=== PATIENT | female | born 1940 | race Caucasian/White ===

== ENCOUNTER → 2017-01-10 | Outpatient (CLI) | payer MEDICARE ==
[~2017-01-10] MED LIST: ALBUTEROL17 GM INH; AMANTADINE HCL100 MG PO; AMIODARONE PO; AMOXICILLIN; AMOXICILLIN875 MG PO; ASPIRIN PO; ASPIRIN81 M1 PO; AVANDIA PO; BACTRIM DS TABL1 TA1 PO; BENAZEPRIL HCL5 MG PO; CARDIZEM CD PO; CARDIZEM SR PO; CELEXA PO; CITALOPRAM HBR40 MG PO; COREG PO; COUMADIN PO; COUMADIN2.5 MG PO; DYRENIUM100 MG PO; FERRO-TIME325 MG; FERRO-TIME325 MG PO; FERROUS SULFATE PO; GLUMETZA PO; HRT PO; INDERAL40 MG PO; KCL PO; KDUR; KLOR-CON PO; LANOXIN PO; LASIX PO; LEVOTHYROXINE25 MCG PO; LISINOPRIL PO; LOPRESSOR PO; LOVENOX; MAG-OX 400400 MG; MAG-OXIDE400 MG PO; METOLAZONE2.5 MG PO; METOPROLOL SUCC50 MG PO; MULTI-VITAMIN1 TAB PO; PERCOCET; PREDNISONE; PREVACID PO; PRILOSEC PO; PRIMIDONE250 MG PO; PROTONIX PO; SIMVASTATIN40 MG; SINEMET PO; SINEMET-25/1001 TAB PO; SYNTHROID PO; TESSALON PERLE100 M1 PO; TRIAMTERENE-HC1 EACH; ZESTORETIC 20/11 TAB PO; ZESTORETIC PO; ZOCOR PO
--- NOTE | ~2017-01-10 | US85 ---
[facility] A Service of [facility] RADIOLOGY TEXT RESULTS PATIENT: WING LIEBERMAN LOCATION: SNIV : 40 UNIT #: [id number] AGE: [address]: BEENA LOZA MD SEX: F ORDER DR: [id number] [address] [address] [id number] O MR#: [id number] Acc #: [id number] NAME: WING LIEBERMAN : 1940 SEX: F STUDY DATE/TIME: 01/10/2017 15:52 UNIT: SNIV ROOM: STUDY DESCRIPTION: LE Veins Unilat or Ltd Stdy Ordering Physician: Sajan Loza M.D. MEDICAL IMAGING REPORT This report is preliminary unless electronic signature is present. EXAM Right lower extremity venous duplex HISTORY Right lower extremity swelling and pain x4-5 days. FINDINGS There is phasic spontaneous flow with respiration seen at the right common femoral, deep femoral, femoral, popliteal veins. The anterior tibial vein is unable to be visualized. The right posterior tibial vein has flow with augmentation. The right peroneal vein is unable to be visualized. The right saphenous vein has flow present with augmentation. There is compressibility of the vein lumen of the right common femoral, deep femoral, femoral, and popliteal veins. Again, the anterior tibial and posterior tibial veins could not be visualized for compression, nor could the peroneal vein. The saphenous vein has compressibility of the vein lumen. IMPRESSION 1. There is no evidence of a DVT of the right lower extremity on today's exam. Significant edema was noted in the calf, making difficult to visualize all of the tibial veins. Dictated by... Steven Carranza M.D. THIS IS AN ELECTRONICALLY VERIFIED REPORT Steven Carranza M.D. at 01/11/2017 9:07 AM AC/pcl [facility] A Service of [facility] RADIOLOGY TEXT RESULTS PATIENT: WING LIEBERMAN LOCATION: SNIV : 40 UNIT #: [id number] AGE: [address]: BEENA LOZA MD SEX: F ORDER DR: TD: 01/10/2017 19:00 JOB #: [id number] MEDICAL IMAGING REPORT Page 1 of 1
== END | disposition home or self-care (01) ==
LOC: SNIV 15:30
DX: S80.11XA Contusion of right lower leg, initial encounter (principal); R60.0 Localized edema
CPT/HCPCS: 93971

== ENCOUNTER → 2017-02-08 | Day surgery (SDC) | payer MEDICARE ==
--- NOTE | ~2017-02-08 | OR ---
Unit #: [id number] #: [id number] Patient: WING LIEBERMAN [id number] [address] [address] [id number] O MR#: [id number] NAME: WING LIEBERMAN. ROOM: Date of Procedure: 02/08/2017 Admission Date: 02/08/2017 Surgeon: Mendez Augustine M.D. : 1940 Attending Physician: Mendez Augustine M.D. Primary Care Physician: iLn Loza OPERATIVE REPORT JOB NOTE: CC: DR. SAJAN LOZA. PRIMARY CARE PHYSICIAN Dr. Sajan Loza. PREOPERATIVE DIAGNOSES Dyspepsia and dysphagia. PROCEDURES PERFORMED Upper gastrointestinal endoscopy and biopsy as well as dilation of the distal esophagus with a 60-Polish Gonzalez dilator. POSTOPERATIVE DIAGNOSES 1. The patient had a single gastric ulcer in the prepyloric antral area. This was about 8 mm in size with grayish-white ulcer base. 2. There was severe prepyloric antral erosive gastritis. 3. Rest of the examination up to third part of duodenum was normal. A biopsy was obtained from the antrum for CLOtest. In addition, distal esophagus was dilated using a 60-Polish Gonzalez dilator; however, there was no obstructing stricture or mucosal ring. Relook endoscopy did not show any bleeding in the distal esophagus indicating that the dilation was in fact not needed in the first place. RECOMMENDATIONS The patient is being started on Protonix 40 mg p.o. daily. She will be followed up in the office in 8 to 10 weeks' time. SEDATION USED MAC. DESCRIPTION OF PROCEDURE Following detailed explanation of potential risks and complications of an upper endoscopy, namely perforation, bleeding, and complication related to sedation, the patient was brought to GI lab and laid in the left lateral decubitus position. Lubricated tip of the Olympus video upper endoscope was passed through the bite block into the proximal esophagus under direct vision. The entire esophageal mucosa was examined and appeared normal. Z-line was nicely demarcated, there being no esophagitis or hiatus hernia. The scope was then advanced into the gastric cavity and the latter was insufflated. Mucosa of the fundus, body, and antrum was examined. The patient was noted to have severe prepyloric antral erosive gastritis. In addition, a single gastric ulcer was seen in the anterior aspect of the Unit #: [id number] #: [id number] Patient: WING LIEBERMAN antrum which was about 8 mm with grayish-white ulcer base. Pylorus was intubated with visualization of the normal duodenal bulb and second and third part of the duodenum. Upon withdrawal and retroflexion; incisura, cardia, and greater curve was examined and no additional findings were noted. A biopsy was obtained from the antrum for CLOtest. The scope was then withdrawn in the distal esophagus. An 18 to 20 mm TTS balloon was passed through the accessory channel of the scope and dilation of the distal esophagus was done empirically. Relook endoscopy did not show any obvious bleeding. It did not show any mucosal injury of bleeding indicating that the dilation was probably unnecessary in the first place. The scope was then withdrawn all the way up to pharynx. No additional findings were noted. The patient tolerated the procedure without any postprocedure complications. Dictated by... Sheldon Terry/tracee TD: 02/08/2017 11:58 JOB #: [id number] OPERATIVE REPORT Page 1 of 1 X Mendez Augustine MD X PROCEDURE OPERATIVE NOTE
--- NOTE | ~2017-02-08 | OR ---
Unit #: [id number] #: [id number] Patient: WING LIEBERMAN [id number] [address] [address] [id number] O MR#: [id number] NAME: WING LIEBERMAN ROOM: Date of Procedure: 02/08/2017 Admission Date: 02/08/2017 Surgeon: Mendez Augustine M.D. : 1940 Attending Physician: Mendez Augustine M.D. Primary Care Physician: Lin Delacruz OPERATIVE REPORT ADDENDUM Postoperative instructions; the patient is advised to increase the dose of omeprazole to 40 mg p.o. b.i.d. from 40 mg q.a.m. Dictated by... Sheldon Terry/tracee TD: 02/08/2017 11:17 JOB #: [id number] OPERATIVE REPORT Page 1 of 1 X Mendez Augustine MD X PROCEDURE OPERATIVE NOTE
== END | disposition home or self-care (01) ==
LOC: COPS 05:59
DX: K25.9 Gastric ulcer, unspecified as acute or chronic, without hemorrhage or perforation (principal); R13.10 Dysphagia, unspecified; I48.91 Unspecified atrial fibrillation; K21.9 Gastro-esophageal reflux disease without esophagitis; M19.90 Unspecified osteoarthritis, unspecified site; I50.9 Heart failure, unspecified; Z98.890 Other specified postprocedural states; I10 Essential (primary) hypertension; Z90.49 Acquired absence of other specified parts of digestive tract; Z98.51 Tubal ligation status; Z95.0 Presence of cardiac pacemaker; Z95.1 Presence of aortocoronary bypass graft; Z79.899 Other long term (current) drug therapy
CPT/HCPCS: 87077